=== PATIENT | female | born 1975 | race Caucasian/White ===

== ENCOUNTER → 2024-12-05 15:32 | Outpatient (REF) | payer OTHER, SELFPAY | LOC: WDC 15:32 | PROVIDERS: ATTENDING PHYSICIAN Advanced Practice Midwife; FAMILY PHYSICIAN Family Medicine | DX: Z12.31 Encounter for screening mammogram for malignant neoplasm of breast (principal) | CPT/HCPCS: 77063; 77067 ==

== ENCOUNTER 2025-01-11 10:49 | Emergency (ER) | payer OTHER, SELFPAY ==
[2025-01-11 10:58] VITALS: BP 111/72
[2025-01-11 11:36] LABS: Urine Albumin Negative (Neg - Trace); Urine Bilirubin Negative (Negative); Urine Character Clear (Clear); Urine Color Yellow; Urine Glucose Negative (Negative); Urine Ketone Negative (Negative); Urine Leukocyte 1+ (Negative); Urine Nitrite Negative (Negative); Urine Occult Blood Negative (Negative); Urine Urobilinogen Negative (Neg - 1+)
[2025-01-11 11:37] LABS: % Basophils 0.7 % (0-2); % Eosinophils 1.9 % (0-6); % Immature Granulocytes 0.2 % (0-0.5); % Lymphocytes 35.7 % (20.5-51.1); % Monocytes 9.5 % (1.7-9.3); Absolute Eosinophils 0.1 10^3/uL (0-0.7); Absolute Lymphocytes 2.1 10^3/uL (1.2-3.4); Absolute Monocytes 0.6 10^3/uL (0.1-0.6); Hematocrit 42.4 % (37.0-47.0); Hemoglobin 14.1 g/dL (12.0-16.0); Mean Corp Hgb Conc. 33.3 g/dL (33.0-37.0); Mean Corpuscular Volume 96.4 fL (81.0-99.0); Mean Platelet Volume 9.5 fL (7.4-10.4); Nucleated Red Blood Cells % 0 %; Platelet Count 192 10^3/uL (130-400); White Blood Cell Count 5.8 10^3/uL (4.8-10.8)
[2025-01-11 12:01] LABS: Urine Squamous Cell >30 /LPF (Few)
[2025-01-11 12:02] LABS: Urine Bacteria Few (Negative); Urine Red Blood Cell 0-2 /HPF (0-2)
--- NOTE | 2025-01-11 12:04 | ED.GENMED ---
Addendum entered and electronically signed by Brandon Wagner PA-C 01/14/25 15:29:
Urine culture with 60,000 CFU Streptococcus. There is also mixed latasha present. Attempted to contact patient without success. Voicemail left.
Original Note:
History of Present Illness
General
Chief Complaint: Abdominal Pain
Source: patient
Exam Limitations: none
Time Seen by Provider: 01/11/25 11:39
Nursing documentation reviewed up to this point in time: agreed with
History of Present Illness
History of Present Illness:
The patient is a pleasant 49-year-old female who reports that she was playing soccer yesterday evening, after eating dinner, and suddenly developed left lower abdominal pain that felt sharp. Patient reports that at rest the discomfort dulls out,
however, when she moves or stretches out her body, the pain accentuates again and become sharp. Patient denies nausea, vomiting and diarrhea. She denies constipation. She denies fever and urinary symptoms.
Past History
Past History
ED Past Medical History: None
ED Past Surgical History: Other (ear surgery)
Social History
Tobacco: Non-smoker
Alcohol: Other
Drug: None
Personal:
Living: with family
Employment: Employed
Family History
Family History: Other
Review of Systems
Review of Systems
Allergies reviewed?: Yes
All Other Systems: ROS reviewed and negative except as documented in HPI and ROS
Constitutional: Reports no symptoms
EENT: Reports no symptoms
Respiratory: Reports no symptoms
Cardiac: Reports no symptoms
ABD/GI: Reports abdominal pain
: Reports no symptoms
Musculoskeletal: Reports no symptoms
Skin: Reports no symptoms
Neurological: Reports no symptoms
Endocrine: Reports no symptoms
Hematologic/Lymphatic: Reports no symptoms
Psychiatric: Reports no symptoms
Phy Exam
Physical Exam
Physical Exam:
Physical Exam
General: no apparent distress, not acutely ill, well appearing
Neck: supple.
Heart: s1/s2 regular rate and rhythm, no murmur.
Lungs: no acute respiratory distress.
Abdomen: Normal bowel sounds. Nondistended and soft. Left lower quadrant tenderness without rebound or guarding
Neuro: alert and oriented. no focal neurological deficits
Skin: no rash
Psychiatric: well kept.
Course
Orders/Labs/Results
Orders:
Orders
01/11/25 11:09
Complete Blood Count/With Diff Urgent
Comprehensive Metabolic Panel Urgent
HCG, Serum Qualitative Screen Urgent
Lipase Urgent
Urinalysis Reflex To Culture Urgent
Date Specimen was Collected: 01/11/25
Time Specimen was Collected: 11:00
Urine Microscopic Reflex Cult Urgent
Urine Culture Urgent
JAIDA Source: U
Specimen Description:
Date Specimen was Collected: 01/11/25
Time Specimen was Collected: 11:00
01/11/25 12:00
CT Abd/pelvis W Iv Cont Urgent
Comment:
Reason For Exam: LLQ pain
01/11/25 12:25
Add On- LAB Urgent
Tests Added?: beta HCG qualitative
Abnormal Lab Results
01/11/25
11:09
MCH 32.0 H pg
(27.0-31.0)
Monocytes % 9.5 H %
(1.7-9.3)
AST 73 H U/L
(14-36)
ALT 92 H U/L
(0-35)
Leukocyte Esterase Rfl 1+ A
(Negative)
Urine Bacteria (Reflex) Few A
(Negative)
01/11/25 11:09
01/11/25 11:09
Vital Signs
Initial and Last Documented VS:
Initial Vital Signs
Temp Pulse Resp BP Pulse Ox
97.7 F 51 16 111/72 100
01/11/25 10:58 01/11/25 10:58 01/11/25 10:58 01/11/25 10:58 01/11/25 10:58
Last Documented Vital Signs
Temp Pulse Resp BP Pulse Ox
97.7 F 51 16 111/72 100
01/11/25 10:58 01/11/25 10:58 01/11/25 10:58 01/11/25 10:58 01/11/25 10:58
MDM/Problems Addressed
Differential Diagnosis Includes:
Ovarian cyst, ovarian cyst rupture, acute diverticulitis
MDM/Problems Addressed:
Patient presents with acute left lower abdominal pain
*Radiology
Radiology exam reviewed: radiology read reviewed
*Pulse Oximetry
Patient hypoxic: no
*EKG
Interpreted by ED Provider?: NA
*Hoop Machine Operator Interpretation
Rate: Hoop Machine Operator- N/A
*Critical Care Note
Total Time (30-74mins, 75-104mins- exclusive of procedures): Not Applicable
Update Note
Update Note:
3:[address] shows nonspecific enteritis of small bowel. However, patient has had no vomiting or diarrhea. CT also shows small simple left ovarian cyst but no free fluid. It is unclear what is causing patient's pain. Patient has no fever and blood
work shows no abnormalities. Abdomen remains nondistended. Patient encouraged to take anti-inflammatories and follow-up with gynecology if pain persists. It Is possible patient has abdominal wall strain due to playing soccer yesterday
ED Attending Note
-
Portions of this chart may have been created with voice recognition software.� Occasional wrong word or��sound alike� substitutions may have occurred due to the inherent limitations of voice recognition software.
Discharge Plan
Departure
Patient Disposition: Home (Routine Discharge)
Date of Disposition: 01/11/25
Time of Disposition: 15:11
Patient with high blood pressure during this ER visit?: No
Condition: Good
Covid-19: Not Applicable
Discharge Problem:
Left lower quadrant abdominal pain
Instructions: Ovarian cyst - ED discharge instructions
Prescriptions:
No Action
vit-iron fum-folic ac [ Vitamin with Minerals] 1 EACH tablet
1 tab PO DAILY
CLARITIN
PRN PRN (Reason: allergies)
Referrals:
Laura Barber DO [Family Provider] -
Activity Restrictions/Additional Instructions:
600 mg of Motrin every 6-8 hours for pain. If you are still having pain in 72 hours, please follow-up with your cribbing setter
Interventions
Interventions:
*Risk Screen - Suicide Last Done: 01/11/25 10:58
*General Assessment Last Done: 01/11/25 10:58
*Neglect/Abuse Screening Last Done: 01/11/25 10:58
*ED COVID-19 Vaccine History Last Done: 01/11/25 11:31
ZW-[facility]uiog-Pfnbgimrbz Assessment Last Done: 01/11/25 11:31
Discharge Date and Time
Print Language: ICELANDIC
[2025-01-11 12:06] LABS: ALT (SGPT) 92 U/L (0-35); AST (SGOT) 73 U/L (14-36); Albumin 4.6 g/dl (3.5-5.0); Alkaline Phosphatase 72 U/L (38-126); Blood Urea Nitrogen 16 mg/dl (7-17); Calcium 9.9 mg/dl (8.4-10.2); Carbon Dioxide 26 mmol/L (22-30); Chloride 103 mmol/L (98-107); Glucose 86 mg/dl (70-99); Lipase 98 U/L (23-300); Potassium 4.4 mmol/L (3.5-5.1); Sodium 138 mmol/L (135-145); Total Bilirubin 1.2 mg/dl (0.2-1.3); Total Protein 7.7 g/dl (6.3-8.2); eGFR > 60.00
[2025-01-11 13:27] LABS: HCG, Serum Qualitative Screen Negative
== END 2025-01-11 15:52 | disposition home or self-care (01) ==
LOC: EMR 10:49
PROVIDERS: Emergency Medicine; EMERGENCY PHYSICIAN Emergency Medicine; FAMILY PHYSICIAN Family Medicine
DX: R10.32 Left lower quadrant pain (principal); Y93.66 Activity, soccer
CPT/HCPCS: 99284; 74177; 80053; 81003; 81015; 83690; 84703; 85025; 87077; 87086; 87147; Q9967

== ENCOUNTER 2025-04-12 06:21 | Day surgery (SDC) | payer OTHER, SELFPAY | END 2025-04-12 09:36 | disposition home or self-care (01) | LOC: GI 06:21 | PROVIDERS: ATTENDING PHYSICIAN Internal Medicine Gastroenterology | DX: Z12.11 Encounter for screening for malignant neoplasm of colon (principal); K64.8 Other hemorrhoids | CPT/HCPCS: G0121 ==